=== PATIENT | female | born 1970 | race African-American/Black ===

== ENCOUNTER 2017-04-16 12:11 | Inpatient (IN) | payer OTHER ==
[2017-04-16 12:33] VITALS: BMI 23.3
[2017-04-16] MEDS ORDERED: NICOTINE POLACRILEX 2 MG GUM BC PRN (17:05)
[2017-04-16] MEDS ORDERED: MAGNESIUM CITRATE 300 ML BOTTLE PO PRN (17:05)
[2017-04-16] MEDS ORDERED: IBUPROFEN 400 MG TABLET (FP) PO PRN (17:05)
[2017-04-16] MEDS ORDERED: MENTHOL/PHENOL 1 EACH UD MM PRN (17:05)
[2017-04-16] MEDS ORDERED: chlordiazePOXIDE HCL 25 MG CAPSULE PO PRN (17:05)
[2017-04-16] MEDS ORDERED: guaiFENesin/D-METHORPHAN HB 10 ML UNIT-DOSE CUPS PO PRN (17:05)
[2017-04-16] MEDS ORDERED: P-EPHED 60MG/TRIPROLIDI 2.5MG TABLET PO PRN (17:05)
[2017-04-16] MEDS ORDERED: MAGNESIUM HYDROX 2400MG/30ML ORAL SUSPENSION 30 ML CUP PO PRN (17:05)
[2017-04-16] MEDS ORDERED: LOPERAMIDE HCL 2 MG CAPSULE PO PRN (17:05)
--- NOTE | 2017-04-16 17:05 | HP ---
CIWA Score - CIWA Score Nausea/Vomitin-Int. Nausea w/Dry Heave Muscle Tremors: 4-Moderate,w/Arms Extend Anxiety: 3 Agitation: 3 Paroxysmal Sweats: 3 Orientation: 0-Oriented Tacttile Disturbances: 0-None Auditory Disturbances: 0-None Visual Disturbances: 0-None Headache: 3-Moderate CIWA-Ar Total Score: 20 Admission ROS BHS - HPI Chief Complaint: alcohol withdrawal syndrome/sx Allergies/Adverse Reactions: Allergies Allergy/AdvReac Type Severity Reaction Status Date / Time cashew nut Allergy Severe Verified 04/16/17 12:29 lisinopril Allergy Severe Verified 04/16/17 12:46 pistachio nut Allergy Severe Verified 04/16/17 12:29 History of Present Illness: 46 yo f with chronic alcohoism admitted for [facility] detox, first admission and treatment episode, was sober when she had her children. PMHX HIV+ on meds, [place] them on [address] prior to admission ,last filled 04/10/17. informed she needs to bring medication with her and we may not have them in stock but her priority is to attend detox. multiple medical comorbidities reported, taking medication as prescribed, did not take today. no si at this time. no h/o seizurs no DTs. Exam Limitations: No Limitations - Ebola screening Have you traveled outside of the country in the last 21 days: Yes Have you had contact with anyone from an Ebola affected area: No Have you been sick,other than usual withdrawal symptoms: No Do you have a fever: No - Review of Systems Constitutional: Chills, Diaphoresis, Malaise, Changes in sleep, Weakness, Unintentional Wgt. Loss Respiratory: reports: Cough, SOB with Exertion, Wheezing, Productive cough Cardiac: reports: No Symptoms Reported GI: reports: Nausea, Poor Appetite, Poor Fluid Intake, Rectal Bleeding, Vomiting , Abdominal cramping : reports: No Symptoms Reported Musculoskeletal: reports: Back Pain Integumentary: reports: Flushing, Sweating Neuro: reports: Headache, Tremors, Weakness, Unsteady Gait Endocrine: reports: No Symptoms Reported Hematology: reports: No Symptoms Reported Psychiatric: reports: Judgement Intact, Mood/Affect Appropiate, Orientated x3, Anxious, Depressed Other Systems: Reviewed and Negative Patient History - Patient Medical History Hx Anemia: No Hx Asthma: Yes (Pt is on MDI) Hx Chronic Obstructive Pulmonary Disease (COPD): No Hx Cancer: No Hx Cardiac Disorders: Yes (Pt states she has an cocaine NM at age 33 yrs old.) Hx Congestive Heart Failure: No Hx Hypertension: Yes (on meds.) Hx Hypercholesterolemia: No Hx Pacemaker: No HX Cerebrovascular Accident: Yes (mild stroke from alcohol last month, resolved) Hx Seizures: No Hx Dementia: No Hx Diabetes: No Hx Gastrointestinal Disorders: No Hx Genitourinary Disorders: No Hx Sexually Transmitted Disorders: No Hx Renal Disease (ESRD): No Hx Thyroid Disease: No Hx Human Immunodeficiency Virus (HIV): Yes Hx Hepatitis C: No Hx Depression: No Hx Suicide Attempt: Yes (Pt states she tried to cut her wrist at age 16 yrs.) Hx Bipolar Disorder: Yes Hx Schizophrenia: Yes - Patient Surgical History Past Surgical History: Yes Hx Section: Yes (x 2) Anesthesia Reaction: No - PPD History Previous Implant?: Yes Documented Results: Negative w/o proof Implanted On Prior [facility] Admission?: No PPD to be Administered?: Yes - Reproductive History Patient is a Female of Child Bearing Age (11 -55 yrs old): No Last Menstrual Period: 04/02/17 Patient : No - Smoking Cessation Smoking history: Current every day smoker Have you smoked in the past 12 months: Yes Aproximately how many cigarettes per day: 10 Hx Chewing Tobacco Use: No Initiated information on smoking cessation: Yes 'Breaking Loose' booklet given: 04/16/17 - Substance & Tx. History Hx Alcohol Use: Yes Hx Substance Use: No Substance Use Type: Cocaine Hx Substance Use Treatment: No (1st tretment episode) - Substances Abused Alcohol Route: Oral Frequency: Daily Amount used: 10 24 OZ BEERS/ 1 PINT RAY Age of first use: 7 Date of Last Use: 04/16/17 Crack Route: Smoking Frequency: Daily Amount used: $50 AND UP Age of first use: 16 Date of Last Use: 04/16/17 Family Disease History - Family Disease History Family Disease History: Other: Father (alcoholism), Mother (alcoholism), Brother (alcoholism), Sister (alcoholism), Son (alcoholism) Admission Physical Exam BHS - Vital Signs Vital Signs: Vital Signs - 24 hr 04/16/17 12:27 Temperature 98.4 F Pulse Rate 83 Respiratory 16 Rate Blood Pressure 130/87 - Physical General Appearance: Yes: Nourished, Appropriately Dressed, Disheveled, Mild Distress, Tremorous, Irritable, Sweating, Anxious HEENTM: Yes: Within Normal Limits, EOMI, Hearing grossly Normal, Normal ENT Inspection, Normocephalic, Normal Voice, ONESIMO, Pharynx Normal Respiratory: Yes: Within Normal Limits, Chest Non-Tender, Lungs Clear, Normal Breath Sounds, No Respiratory Distress, No Accessory Muscle Use Neck: Yes: Within Normal Limits, No masses,lesions,Nodules, Supple, Trachea in good position Breast: Yes: Breast Exam Deferred Cardiology: Yes: Within Normal Limits, Regular Rhythm, Regular Rate, S1, S2 Abdominal: Yes: Within Normal Limits, Normal Bowel Sounds, Non Tender, Flat, Soft Genitourinary: Yes: Within Normal Limits Back: Yes: Within Normal Limits, Normal Inspection Musculoskeletal: Yes: full range of Motion, Gait Steady, Pelvis Stable, Back pain Extremities: Yes: Normal Capillary Refill, Normal Range of Motion, Tremors Neurological: Yes: circulation worker II-XII NML intact, Fully Oriented, Alert, Motor Strength 5/5, Normal Response, Depressed Affect Integumentary: Yes: Normal Color, Warm, Diaphoresis, Moist Lymphatic: Yes: Within Normal Limits - Addiitonal Findings: withdrawal sx - Diagnostic (1) Alcohol dependence with uncomplicated withdrawal Current Visit: Yes Status: Acute (2) Cocaine dependence Current Visit: Yes Status: Acute (3) HIV (human immunodeficiency virus infection) Current Visit: Yes Status: Acute (4) Nicotine dependence Current Visit: Yes Status: Acute Cleared for Admission [facility] - Detox or Rehab [facility] Level of Care: Medically Managed Detox Regimen/Protocol: Librium [facility] Breath Alcohol Content Breath Alcohol Content: 0.046 Urine Pregancy Test - Result Urine Test Results: Negative- NO Line Present Urine Drug Screen - Results Drug Screen Negative: No Urine Drug Screen Results: ROSIBEL-Cocaine
[2017-04-16] MEDS: LOSARTAN POTASSIUM 50 MG TABLET (FP) PO SCH (18:00)
[2017-04-16] MEDS ORDERED: chlordiazePOXIDE HCL 25 MG CAPSULE PO ONE (18:00)
[2017-04-16] MEDS: PANTOPRAZOLE 40 MG TABLET (FP) PO SCH (18:00)
[2017-04-16] MEDS: ACETAMINOPHEN 325 MG TABLET (FP) PO PRN (18:04)
[2017-04-16] MEDS: NICOTINE 14 MG/24 HOURS TOPICAL PATCH TD SCH (18:04)
[2017-04-16] MEDS: hydrOXYzine PAMOATE 50 MG CAPSULE (FP) PO PRN (21:03)
[2017-04-16] MEDS ORDERED: THIAMINE HCL 100 MG TABLET (FP) PO SCH (22:00)
[2017-04-16] MEDS ORDERED: AZELASTINE HCL NS SCH (22:00)
[2017-04-16] MEDS: BUDESONIDE/FORMETEROL FUMARATE 160/4.5 mcg INHALER IH SCH (22:12)
[2017-04-16] MEDS: chlordiazePOXIDE HCL 25 MG CAPSULE PO SCH (22:13)
[2017-04-16] MEDS: MONTELUKAST NA 10 MG TABLET PO SCH (22:13)
[2017-04-16] MEDS: POLYETHYLENE GLYCOL 3350 119 GM BTL PO SCH (22:13)
[2017-04-16] MEDS: THIAMINE HCL 100 MG TABLET (FP) PO SCH (22:14)
[2017-04-16 22:54] LABS: URINE APPEARANCE CLEAR; URINE BILIRUBIN NEGATIVE (NEGATIVE); URINE BLOOD NEGATIVE (NEGATIVE); URINE COLOR LTYELLOW; URINE GLUCOSE (UA) NEGATIVE (NEGATIVE); URINE KETONE NEGATIVE (NEGATIVE); URINE NITRITE NEGATIVE (NEGATIVE); URINE PROTEIN NEGATIVE (NEGATIVE); URINE UROBILINOGEN NEGATIVE mg/dL (0.2-1.0)
[2017-04-17] MEDS: chlordiazePOXIDE HCL 25 MG CAPSULE PO SCH ×4 (05:38→22:05)
[2017-04-17 09:55] LABS: MCH 33.3 pg (25.7-33.7); MEAN CELL VOLUME 100.6 fl (80-96); MEAN PLT VOLUME 10.1 fl (7.5-11.1); PLATELET COUNT 115 K/MM3 (134-434); RDW 13.6 % (11.6-15.6); WHITE BLOOD COUNT 4.2 K/mm3 (4.0-10.0)
[2017-04-17 10:00] LABS: ALBUMIN 2.7 g/dl (3.4-5.0); ANION GAP 11 (8-16); BILIRUBIN,TOTAL 0.8 mg/dL (0.2-1.0); CALCIUM 7.9 mg/dL (8.5-10.1); CO2 20 mmol/L (21-32); CREATININE 0.7 mg/dL (0.55-1.02); GLUCOSE,RANDOM 93 mg/dL (74-106); SGOT/AST 65 U/L (15-37); SGPT/ALT 45 U/L (12-78); TOT PROT 7.7 g/dl (6.4-8.2)
[2017-04-17] MEDS ORDERED: DARUNAVIR ETHANOLATE 800 MG TAB PO SCH (10:00)
[2017-04-17] MEDS ORDERED: PATIENT'S OWN MEDICATION (NON-FORMULARY) (Elviteg/Cob/Emtri/Tenof Alafen 1 EACH) PO SCH (10:00)
[2017-04-17 10:01] LABS: ALK PHOS 107 U/L (45-117)
[2017-04-17] MEDS: BUDESONIDE/FORMETEROL FUMARATE 160/4.5 mcg INHALER IH SCH ×2 (10:25→22:04)
[2017-04-17] MEDS: NICOTINE 14 MG/24 HOURS TOPICAL PATCH TD SCH (10:26)
[2017-04-17] MEDS: LOSARTAN POTASSIUM 50 MG TABLET (FP) PO SCH (10:26)
[2017-04-17] MEDS: PANTOPRAZOLE 40 MG TABLET (FP) PO SCH (10:26)
[2017-04-17] MEDS: PRENATAL VITAMINS W/ FOLIC ACID TABLET (FP) PO SCH (10:26)
[2017-04-17] MEDS: ACETAMINOPHEN 325 MG TABLET (FP) PO PRN (10:28)
[2017-04-17] MEDS: MAG HYDROX/AL HYDROX/SIMETH 30 ML UNIT-DOSE CUP PO PRN (10:28)
[2017-04-17] MEDS: POLYETHYLENE GLYCOL 3350 119 GM BTL PO SCH (10:28)
--- NOTE | 2017-04-17 10:41 | PN ---
S CIWA - CIWA Score Nausea/Vomitin Muscle Tremors: 3 Anxiety: 3 Agitation: 2 Paroxysmal Sweats: 3 Orientation: 0-Oriented Tacttile Disturbances: 1-Very Mild Itch/Numbness Auditory Disturbances: 0-None Visual Disturbances: 0-None Headache: 0-None Present CIWA-Ar Total Score: 15 BHS Progress Note (SOAP) Subjective: interrupted sleep, sweats, shakes Objective: 04/17/17 10:39 Vital Signs Temperature 98.4 F 04/17/17 10:32 Pulse Rate 96 H 04/17/17 10:32 Respiratory Rate 18 04/17/17 10:32 Blood Pressure 109/78 04/17/17 10:32 O2 Sat by Pulse Oximetry (%) Laboratory Tests 04/16/17 04/17/17 04/17/17 22:00 06:00 06:00 WBC 4.2 RBC 4.01 Hgb 13.3 Hct 40.4 MCV 100.6 H MCH 33.3 MCHC 33.0 RDW 13.6 Plt Count 115 L MPV 10.1 Sodium 140 Potassium 3.8 Chloride 109 H Carbon Dioxide 20 L Anion Gap 11 BUN 11 Creatinine 0.7 Creat Clearance w eGFR > 60 Random Glucose 93 Calcium 7.9 L Total Bilirubin 0.8 AST 65 H ALT 45 Alkaline Phosphatase 107 Total Protein 7.7 Albumin 2.7 L Urine Color Ltyellow Urine Appearance Clear Urine pH 5.0 Ur Specific [place] 1.010 Urine Protein Negative Urine Glucose (UA) Negative Urine Ketones Negative Urine Blood Negative Urine Nitrite Negative Urine Bilirubin Negative Urine Urobilinogen Negative pt aox3 in nad ambulating Assessment: 04/17/17 10:40 withdrawal sx's Plan: cont. detox increase fluids
--- NOTE | 2017-04-17 17:20 | CONSULT ---
[facility] Psychiatric Consult - Data Date of interview: 04/17/17 Admission source: [facility] Identifying data: Readmission to [facility] for this 46 y/o AA female seeking detox treatment on for alcohol and cocaine dependence.Patient is single, a mother of eight,homeless,unemployed and supported on [employer] benefits. Substance Abuse History: Active use of alcohol and cocaine as per self- report.See [facility] report for details. Smoking Cessation. Smoking history: Current every day smoker. Have you smoked in the past 12 months: Yes. Aproximately how many cigarettes per day: 10. Hx Chewing Tobacco Use: No. Initiated information on smoking cessation: Yes. 'Breaking Loose' booklet given : 04/16/17. - Substance & Tx. History. Hx Alcohol Use: Yes. Hx Substance Use : No. Substance Use Type: Cocaine. Hx Substance Use Treatment: No (1st tretment episode). - Substances Abused. Alcohol. Route: Oral. Frequency: Daily. Amount used: 10 24 OZ BEERS/ 1 PINT RAY. Age of first use: 7. Date of Last Use: 04/16/17. Crack. Route: Smoking. Frequency: Daily. Amount used: $50 AND UP. Age of first use: 16. Date of Last Use: 04/16/17 Medical History: HIV infection,bronchial asthma,arthritis,hepatitis B,GERD,past history of mild CVA (no residual disability) and a remote antecedent of myocardial infarction. Psychiatric History: No reported history of psychiatric hospitalizations.Diagnosed with Schizophrenia,PTSD and MDD as per self- report.Patient is followed at the [facility] in [facility].Treated with abilify and paxil (doses not recalled).Last took these medications two days ago (questionable historian).Ms Vaughan denies history of suicide attempts. Physical/Sexual Abuse/Trauma History: Patient declines to discuss this domain. Additional Comment: Urine Drug Screen Results: ROSIBEL-Cocaine.Noted. Mental Status Exam - Mental Status Exam Alert and Oriented to: Time, Place, Person Cognitive Function: Grossly Intact Patient Appearance: Well Groomed Mood: Withdrawn, Hopeful Affect: Normal Range Patient Behavior: Fatigued, Appropriate, Cooperative Speech Pattern: Clear Voice Loudness: Normal Thought Process: Goal Oriented Thought Disorder: Not Present Hallucinations: Denies Suicidal Ideation: Denies Homicidal Ideation: Denies Insight/Judgement: Poor Sleep: Poorly, Difficulty falling asleep Appetite: Poor, Weight loss Muscle strength/Tone: Normal Gait/Station: Normal Psychiatric Findings - Problem List ([place] 1, 2,3) (1) Alcohol dependence with uncomplicated withdrawal Current Visit: Yes Status: Acute (2) Cocaine dependence Current Visit: Yes Status: Acute (3) Nicotine dependence Current Visit: Yes Status: Acute Qualifiers: Nicotine product type: cigarettes Substance use status: uncomplicated Qualified Code(s): F17.210 - Nicotine dependence, cigarettes, uncomplicated (4) Substance induced mood disorder Current Visit: Yes Status: Acute (5) Schizoaffective disorder Current Visit: Yes Status: Suspected (6) Insomnia Current Visit: Yes Status: Acute - Initial Treatment Plan Initial Treatment Plan: Psychoeducation.Detoxification.Sleep hygiene.Medications : abilify 10 mg po hs + ambien 10 mg po hs prn.Side effects/ benefits discussed with patient.Pharmacy claims reviewed : evidence of refills for topiramate 50 mg Tab # 60/30 days + abilify 20 mg/30 tab/30days + trazodone 150 mg/30 days + zolpidem 10 mg/30 days on 03/17/17 at [facility].In view of this patient's UNRELIABILITY,will resume only abilify at 10 mg/ hs.Patient will get back on her usual doses after discharge from [facility] and discussion with her [employer] care providers.NO scripts required at discharge.Observation.
[2017-04-17] MEDS ORDERED: ZOLPIDEM TARTRATE 10 MG TABLET (PARK CARE ONLY) PO PRN (17:37)
[2017-04-17 17:50] LABS: URINE LEUK ESTERASE Negative (NEGATIVE)
[2017-04-17] MEDS: THIAMINE HCL 100 MG TABLET (FP) PO SCH (22:05)
[2017-04-17] MEDS: ARIPiprazole 10 MG TABLET PO SCH (22:05)
[2017-04-17] MEDS: MONTELUKAST NA 10 MG TABLET PO SCH (22:05)
[2017-04-18] MEDS: chlordiazePOXIDE HCL 25 MG CAPSULE PO SCH ×3 (05:16→17:16)
[2017-04-18] MEDS: BUDESONIDE/FORMETEROL FUMARATE 160/4.5 mcg INHALER IH SCH ×2 (10:34→22:10)
[2017-04-18] MEDS: PANTOPRAZOLE 40 MG TABLET (FP) PO SCH (10:35)
[2017-04-18] MEDS: LOSARTAN POTASSIUM 50 MG TABLET (FP) PO SCH (10:35)
[2017-04-18] MEDS: PRENATAL VITAMINS W/ FOLIC ACID TABLET (FP) PO SCH (10:35)
[2017-04-18] MEDS: POLYETHYLENE GLYCOL 3350 119 GM BTL PO SCH (10:35)
[2017-04-18] MEDS: NICOTINE 14 MG/24 HOURS TOPICAL PATCH TD SCH (10:36)
[2017-04-18] MEDS: ACETAMINOPHEN 325 MG TABLET (FP) PO PRN (10:37)
--- NOTE | 2017-04-18 15:51 | PN ---
S CIWA - CIWA Score Nausea/Vomitin-No Nausea/No Vomiting Muscle Tremors: 3 Anxiety: 4-Mod. Anxious/Guarded Agitation: 3 Paroxysmal Sweats: 3 Orientation: 0-Oriented Tacttile Disturbances: 0-None Auditory Disturbances: 0-None Visual Disturbances: 0-None Headache: 0-None Present CIWA-Ar Total Score: 13 BHS Progress Note (SOAP) Subjective: Anxiety,tremors,sweating,interrupted sleep Objective: 04/18/17 15:49 Vital Signs - 8 hr 04/18/17 04/18/17 10:00 14:19 Temperature 99.7 F H 99.3 F Pulse Rate 106 H 116 H Respiratory 18 18 Rate Blood Pressure 140/97 112/69 Laboratory Tests 04/16/17 04/17/17 04/17/17 22:00 06:00 06:00 WBC 4.2 RBC 4.01 Hgb 13.3 Hct 40.4 MCV 100.6 H MCH 33.3 MCHC 33.0 RDW 13.6 Plt Count 115 L MPV 10.1 Sodium 140 Potassium 3.8 Chloride 109 H Carbon Dioxide 20 L Anion Gap 11 BUN 11 Creatinine 0.7 Creat Clearance w eGFR > 60 Random Glucose 93 Calcium 7.9 L Total Bilirubin 0.8 AST 65 H ALT 45 Alkaline Phosphatase 107 Total Protein 7.7 Albumin 2.7 L Urine Color Ltyellow Urine Appearance Clear Urine pH 5.0 Ur Specific [place] 1.010 Urine Protein Negative Urine Glucose (UA) Negative Urine Ketones Negative Urine Blood Negative Urine Nitrite Negative Urine Bilirubin Negative Urine Urobilinogen Negative Ur Leukocyte Esterase Negative RPR Titer 04/17/17 06:00 WBC RBC Hgb Hct MCV MCH MCHC RDW Plt Count MPV Sodium Potassium Chloride Carbon Dioxide Anion Gap BUN Creatinine Creat Clearance w eGFR Random Glucose Calcium Total Bilirubin AST ALT Alkaline Phosphatase Total Protein Albumin Urine Color Urine Appearance Urine pH Ur Specific [place] Urine Protein Urine Glucose (UA) Urine Ketones Urine Blood Urine Nitrite Urine Bilirubin Urine Urobilinogen Ur Leukocyte Esterase RPR Titer Nonreactive labs noted Assessment: 04/18/17 15:50 Withdrawal sx. Plan: Continue detox
[2017-04-18] MEDS: THIAMINE HCL 100 MG TABLET (FP) PO SCH (22:11)
[2017-04-18] MEDS: ARIPiprazole 10 MG TABLET PO SCH (22:11)
[2017-04-18] MEDS: MONTELUKAST NA 10 MG TABLET PO SCH (22:11)
[2017-04-18] MEDS: chlordiazePOXIDE 5 MG CAPSULE PO SCH (22:12)
[2017-04-18] MEDS: MAG HYDROX/AL HYDROX/SIMETH 30 ML UNIT-DOSE CUP PO PRN (22:30)
[2017-04-19] MEDS: chlordiazePOXIDE 5 MG CAPSULE PO SCH ×3 (05:46→17:06)
--- NOTE | 2017-04-19 10:09 | PN ---
BHS Progress Note (SOAP) Subjective: Sweating,interrupted sleep,restless Objective: 04/19/17 10:08 Vital Signs - 8 hr 04/19/17 04/19/17 04/19/17 03:30 06:00 09:41 Temperature 99.3 F 97.1 F L Pulse Rate 90 103 H Respiratory 18 16 16 Rate Blood Pressure 130/82 121/95 Laboratory Tests 04/16/17 04/17/17 04/17/17 22:00 06:00 06:00 WBC 4.2 RBC 4.01 Hgb 13.3 Hct 40.4 MCV 100.6 H MCH 33.3 MCHC 33.0 RDW 13.6 Plt Count 115 L MPV 10.1 Sodium 140 Potassium 3.8 Chloride 109 H Carbon Dioxide 20 L Anion Gap 11 BUN 11 Creatinine 0.7 Creat Clearance w eGFR > 60 Random Glucose 93 Calcium 7.9 L Total Bilirubin 0.8 AST 65 H ALT 45 Alkaline Phosphatase 107 Total Protein 7.7 Albumin 2.7 L Urine Color Ltyellow Urine Appearance Clear Urine pH 5.0 Ur Specific [place] 1.010 Urine Protein Negative Urine Glucose (UA) Negative Urine Ketones Negative Urine Blood Negative Urine Nitrite Negative Urine Bilirubin Negative Urine Urobilinogen Negative Ur Leukocyte Esterase Negative RPR Titer 04/17/17 06:00 WBC RBC Hgb Hct MCV MCH MCHC RDW Plt Count MPV Sodium Potassium Chloride Carbon Dioxide Anion Gap BUN Creatinine Creat Clearance w eGFR Random Glucose Calcium Total Bilirubin AST ALT Alkaline Phosphatase Total Protein Albumin Urine Color Urine Appearance Urine pH Ur Specific [place] Urine Protein Urine Glucose (UA) Urine Ketones Urine Blood Urine Nitrite Urine Bilirubin Urine Urobilinogen Ur Leukocyte Esterase RPR Titer Nonreactive labs noted Assessment: 04/19/17 10:09 Withdrawal sx. Plan: Continue detox
[2017-04-19] MEDS: PANTOPRAZOLE 40 MG TABLET (FP) PO SCH (10:42)
[2017-04-19] MEDS: BUDESONIDE/FORMETEROL FUMARATE 160/4.5 mcg INHALER IH SCH ×2 (10:42→23:05)
[2017-04-19] MEDS: LOSARTAN POTASSIUM 50 MG TABLET (FP) PO SCH (10:42)
[2017-04-19] MEDS: PRENATAL VITAMINS W/ FOLIC ACID TABLET (FP) PO SCH (10:42)
[2017-04-19] MEDS: POLYETHYLENE GLYCOL 3350 119 GM BTL PO SCH (10:43)
[2017-04-19] MEDS: NICOTINE 14 MG/24 HOURS TOPICAL PATCH TD SCH (10:43)
[2017-04-19] MEDS: THIAMINE HCL 100 MG TABLET (FP) PO SCH (23:05)
[2017-04-19] MEDS: MONTELUKAST NA 10 MG TABLET PO SCH (23:05)
[2017-04-19] MEDS: ARIPiprazole 10 MG TABLET PO SCH (23:05)
[2017-04-19] MEDS: chlordiazePOXIDE HCL 10 MG CAPSULE PO SCH (23:06)
[2017-04-20] MEDS: hydrOXYzine PAMOATE 50 MG CAPSULE (FP) PO PRN (04:13)
[2017-04-20] MEDS: chlordiazePOXIDE HCL 10 MG CAPSULE PO SCH (05:18)
[2017-04-20 06:22] VITALS: BP 112/80; PULSE 94; TEMP 98.2
--- NOTE | 2017-04-20 08:31 | DS ---
[facility] Detox Discharge Summary Admission Date: 04/16/17 Discharge Date: 04/20/17 - History Present History: Alcohol Dependence, Cocaine Dependence - Physical Exam Results Vital Signs: Vital Signs Temperature 98.2 F 04/20/17 06:21 Pulse Rate 94 H 04/20/17 06:21 Respiratory Rate 18 04/20/17 06:21 Blood Pressure 112/80 04/20/17 06:21 O2 Sat by Pulse Oximetry (%) - Treatment Hospital Course: Detox Protocol Followed, Detoxed Safely, Responded well, Discharged Condition Good, Rehab Referral Accepted - Medication Discharge Medications: Ambulatory Orders Azelastine HCl 2 sprays NS BID 04/16/17 Darunavir Ethanolate [Prezista -] 800 mg PO DAILY 04/16/17 Elviteg/Cob/Emtri/Tenof Alafen [Genvoya (Non-Formulary)] 1 each PO DAILY Ergocalciferol [Vitamin D2] 50,000 unit PO Q7D@1000 04/16/17 Losartan Potassium [Cozaar -] 50 mg PO DAILY 04/16/17 Montelukast Na [Singulair -] 10 mg PO HS 04/16/17 Multivit,Calc,Mins/Iron/Folic [Therapeutic-M Tablet] 1 each PO DAILY 04/16/17 Omeprazole 40 mg PO DAILY 04/16/17 Polyethylene Glycol 3350 [Purelax] 17 gm PO DAILY 04/16/17 Salmeterol/Fluticasone [Advair 500Mcg/50Mcg] 1 inh PO BID 04/16/17 Sennosides [Senna] 2 tab PO DAILY PRN 04/16/17 Thiamine HCl [Vitamin B-1] 100 mg PO BID 04/16/17 Trazodone HCl [Desyrel -] 150 mg PO HS 04/16/17 Aripiprazole [Abilify -] 10 mg PO HS #30 tablet 04/20/17 - AMA Did Patient Leave Against Medical Advice: No
--- NOTE | 2017-04-20 09:39 | EKG ---
Test Reason : Blood Pressure : / mmHG Vent. Rate : 079 BPM Atrial Rate : 079 BPM P-R Int : 116 ms QRS Dur : 088 ms QT Int : 388 ms P-R-T Axes : -01 050 078 degrees QTc Int : 444 ms NORMAL SINUS RHYTHM MINIMAL VOLTAGE CRITERIA FOR LVH, MAY BE NORMAL VARIANT NONSPECIFIC T WAVE ABNORMALITY ABNORMAL ECG NO PREVIOUS ECGS AVAILABLE Confirmed by DUSTY ABDI, JENNIFER ([id number]) on 04/20/2017 9:39:02 AM Referred By: Confirmed By:JENNIFER MONTANO MD
[2017-04-23] MEDS ORDERED: ERGOCALCIFEROL (VITAMIN D2) 50,000 UNIT CAPSULE (FP) PO SCH (10:00)
== END 2017-04-20 09:00 | disposition home or self-care (01) | DRG 774 ==
LOC: YASAS 12:11 → Y6N 15:31
PROVIDERS: ADMIT Internal Medicine; ATTEND Internal Medicine
PROC: HZ2ZZZZ Detoxification Services for Substance Abuse Treatment (ICD-10-PCS; principal; 2017-04-16)
DX: F10.230 Alcohol dependence with withdrawal, uncomplicated (principal); F14.20 Cocaine dependence, uncomplicated; F17.210 Nicotine dependence, cigarettes, uncomplicated; F19.24 Other psychoactive substance dependence with psychoactive substance-induced mood disorder; F25.9 Schizoaffective disorder, unspecified; F31.9 Bipolar disorder, unspecified; G47.00 Insomnia, unspecified; I25.2 Old myocardial infarction; I10 Essential (primary) hypertension; Z21 Asymptomatic human immunodeficiency virus [HIV] infection status; Z86.73 Personal history of transient ischemic attack (TIA), and cerebral infarction without residual deficits
CPT/HCPCS: 36415; 80053; 81003; 85027; 86593; 93005; 93010

== ENCOUNTER 2019-03-11 10:44 | Inpatient (IN) | payer OTHER ==
[2019-03-11 11:20] VITALS: BMI 27.7
--- NOTE | 2019-03-11 13:04 | HP ---
"CIWA Score Nausea/Vomitin-Mild Nausea/No Vomiting Muscle Tremors: 1-None Visible, but [place] Anxiety: 2 Agitation: 4-Moderately Restless Paroxysmal Sweats: 1-Minimal Palms Moist Orientation: 2-Disoriented Date<2 days Tacttile Disturbances: 0-None Auditory Disturbances: 2-Mild Harshness/Frighten Visual Disturbances: 2-Mild Sensitivity Headache: 4-Moderately Severe CIWA-Ar Total Score: 19 - Admission Criteria OASAS Guidelines: Admission for Medically Managed Detox: Requires at least one of the followin. CIWA greater than 12 2. Seizures within the past 24 hours 3. Delirium tremens within the past 24 hours 4. Hallucinations within the past 24 hours 5. Acute intervention needed for co occurring medical disorder 6. Acute intervention needed for co occurring psychiatric disorder 7. Severe withdrawal that cannot be handled at a lower level of care (continued vomiting, continued diarrhea, abnormal vital signs) requiring intravenous medication and/or fluids 8. Admitting History and Physical - Past Medical History ...LMP: 08/03/17 - Smoking History Smoking history: Current every day smoker Have you smoked in the past 12 months: Yes Aproximately how many cigarettes per day: 3 - Alcohol/Substance Use Hx Alcohol Use: Yes Admission ROS S - [facility] Allergies/Adverse Reactions: Allergies Allergy/AdvReac Type Severity Reaction Status Date / Time cashew nut Allergy Severe Verified 03/11/19 11:09 lisinopril Allergy Severe Verified 03/11/19 11:09 pistachio nut Allergy Severe Verified 03/11/19 11:09 History of Present Illness: 48 y.o. female pt here requesting detox from [facility] , reports 6 x 6-pk and 1 pint of liquor /day since > 1 yr ago , prior detox at this facility , relapsed after d/c , latest use was last night , current symptoms as above . Pt reports tremors if not drinking , denies seizures or blackouts , + falls while intoxication , latest @ 1: 30 am , fell and hit LEFT hand and left knee , did not seek medical attention , now c/o left hand swelling and pain since , BF wrapped left fingers II & III , reports mild pain and swelling in the left knee . Pt states she starts drinking around 9 am , does not stop until passing out at night . Longest sobriety 5 years while in program in [place] in 2003 . cocaine : 100 $ /DAY denies ivdu , first age of use 16 tobacco : 2-3 cigs/ day since age 14 . PMHX : htn , COPD , HIV dx 2003 ( RF = ST ) clinic @ [facility] , anxiety , depression , denies SA/ SI / HI PSHx : C-sx , 2 children , 1 d. age 5 [place] , 1 d 11 mo viral meningitis , 15 y.o. in foster care in [place] denies court issues SHx : lives alone unable to verify meds beyond ones reconciled, per pt also fills rx @ [facility] pharmacy [phone] , called , no answer per pt closed at this time. Meds to be verified in the a.m. Pt admits to non- compliance w/ BP meds at times , unsure of names and dosages of meds she is currently taken . This report was requested by: Tila Rowan | Reference #: [id number] Others' Prescriptions Patient Name: Uriel Vaughan Date: 1970 Address: [facility] [address] [place] [address] Sex: Female Rx Written Rx Dispensed Drug Quantity Days Supply Prescriber Name 01/18/2019 02/18/2019 zolpidem tartrate 10 mg tablet 30 30 Boyle , Clau 01/18/2019 01/23/2019 zolpidem tartrate 10 mg tablet 30 30 Boyle , Clau Patient Name: Uriel Vaughan Date: 1970 Address: [address] [place] [address] Sex: Female Rx Written Rx Dispensed Drug Quantity Days Supply Prescriber Name 12/28/2018 12/28/2018 zolpidem tartrate 10 mg tablet 30 30 Boyle , Clau 03/25/2018 03/25/2018 zolpidem tartrate 10 mg tablet 30 30 Boyle , Clau Patient Name: Uriel Vaughan Date: 1970 Address: [address], [place] [address] Sex: Female Rx Written Rx Dispensed Drug Quantity Days Supply Prescriber Name 11/25/2018 11/25/2018 zolpidem tartrate 10 mg tablet 30 30 BoyleClau cruz Patient Name: Uriel Vaughan Date: 1970 Address: [facility] [address] [place] [address] Sex: Female Rx Written Rx Dispensed Drug Quantity Days Supply Prescriber Name 08/17/2018 09/28/2018 zolpidem tartrate 10 mg tablet 28 28 Boyle , Clau 08/17/2018 08/30/2018 zolpidem tartrate 10 mg tablet 28 28 Boyle , Clau 08/17/2018 08/19/2018 zolpidem tartrate 10 mg tablet 14 14 Clau Boyle Patient Name: Uriel Vaughan Date: 1970 Address: [facility] [address] [place] [id number] Sex: Female Rx Written Rx Dispensed Drug Quantity Days Supply Prescriber Name 07/16/2018 07/20/2018 zolpidem tartrate 10 mg tablet 30 30 Boyle , Clau 04/19/2018 06/15/2018 zolpidem tartrate 10 mg tablet 30 30 Boyle , Clau 04/19/2018 05/18/2018 zolpidem tartrate 10 mg tablet 30 30 Boyle , Clau 04/19/2018 04/21/2018 zolpidem tartrate 10 mg tablet 30 30 Boyle Clau Exam Limitations: Clinical Condition - Ebola screening Have you traveled outside of the country in the last 21 days: No Have you had contact with anyone from an Ebola affected area: No Do you have a fever: No - Review of Systems Constitutional: No Symptoms Reported EENT: reports: Other (edentulous) Respiratory: reports: SOB with Exertion (h/o COPD) Cardiac: reports: No Symptoms Reported GI: reports: Nausea : reports: No Symptoms Reported Musculoskeletal: reports: Back Pain, Joint Pain (left knee pain and swelling), Other (left hand pain and swelling) Integumentary: reports: No Symptoms Reported Neuro: reports: Headache Endocrine: reports: No Symptoms Reported Psychiatric: reports: Agitated, Anxious Patient History - Patient Medical History Hx Anemia: No Hx Asthma: Yes (On Meds.) Hx Chronic Obstructive Pulmonary Disease (COPD): Yes (Uncertain about Type; On Meds.) Hx Cancer: No Hx Cardiac Disorders: No Hx Congestive Heart Failure: No Hx Hypertension: Yes (on meds.) Hx Hypercholesterolemia: No Hx Pacemaker: No HX Cerebrovascular Accident: Yes (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), resolved) Hx Seizures: No Hx Dementia: No Hx Diabetes: No Hx Gastrointestinal Disorders: Yes (Acid reflux.) Hx Liver Disease: Yes (Hep B.) Hx Genitourinary Disorders: No Hx Sexually Transmitted Disorders: No Hx Renal Disease (ESRD): No Hx Thyroid Disease: No Hx Human Immunodeficiency Virus (HIV): Yes (Diagnosed 2004, On meds.) Hx Hepatitis C: No (Last Tested: 05/2017: NEGATIVE.) Hx Depression: Yes (On meds.) Hx Suicide Attempt: No (PATIENT DENIES CURRENT SI / HI.) Hx Bipolar Disorder: Yes (On meds.) Hx Schizophrenia: No - Patient Surgical History Past Surgical History: Yes Hx Neurologic Surgery: No Hx Cataract Extraction: No Hx Cardiac Surgery: No Hx Lung Surgery: No Hx Breast Surgery: No Hx Breast Biopsy: No Hx Abdominal Surgery: No Hx Appendectomy: No Hx Cholecystectomy: No Hx Genitourinary Surgery: No Hx Section: Yes (x 2 (1998, 2003)) Hx Orthopedic Surgery: No Hx Hysterectomy: No Other Surgical History: DENIES. Anesthesia Reaction: No - PPD History Date: 04/18/17 Results: 1 MM - Reproductive History Last Menstrual Period: 08/03/17 - Smoking Cessation Smoking history: Current every day smoker Have you smoked in the past 12 months: Yes Aproximately how many cigarettes per day: 3 Cigars Per Day: 0 Hx Chewing Tobacco Use: No Initiated information on smoking cessation: No - Substances abused Alcohol Substance route: Oral Frequency: Daily Amount used: (3) 6pk beer & 1 pint of E&J Age of first use: 7 Date of last use: 03/11/19 Crack Substance route: Smoking Frequency: Daily Amount used: $100 Age of first use: 89 Date of last use: 03/11/19 Admission Physical Exam [facility] - Vital Signs Vital Signs: Vital Signs - 24 hr 03/11/19 03/11/19 11:09 11:43 Temperature 97.3 F L 97.3 F L Pulse Rate 76 76 Respiratory 18 18 Rate Blood Pressure 180/117 H 180/117 H - Physical General Appearance: Yes: Mild Distress, Irritable, Anxious HEENTM: Yes: EOMI, Hearing grossly Normal, Normocephalic, Normal Voice, Other ( edentulous upper , many missing teeth lower) Respiratory: Yes: Lungs Clear, Normal Breath Sounds, Decreased Breath Sounds, No Respiratory Distress, No Accessory Muscle Use Neck: Yes: No masses,lesions,Nodules, Trachea in good position Cardiology: Yes: Regular Rhythm, Regular Rate, S1, S2 Abdominal: Yes: Non Tender, Soft Back: Yes: Muscle Spasm (tender PVM lumbar paraspinal) Musculoskeletal: Yes: Gait Steady, Joint swelling (left knee , + crepitus , mild edema, good AROM) Extremities: Yes: Non-Tender, Swelling (left hand dorsum 2nd and 3rd MC , tender to palpation , moderate edema , decreased ROM left wrist , decreased adjuster piano action strength left hand.) Neurological: Yes: Fully Oriented, Alert, Motor Strength 5/5, Depressed Affect Integumentary: Yes: Warm - Addiitonal Findings: sent to [facility] ed for left hand xr . report to Dr Curran pt returned form the hospital , no frx , dx w/ sprain and has erin bandage - Diagnostic (1) Alcohol dependence with uncomplicated withdrawal Current Visit: Yes Status: Chronic (2) Cocaine dependence Current Visit: Yes Status: Chronic Qualifiers: Substance use status: uncomplicated Qualified Code(s): F14.20 - Cocaine dependence, uncomplicated (3) Nicotine dependence Current Visit: Yes Status: Chronic Qualifiers: Nicotine product type: cigarettes Breathalyzer - Breathalyzer Breathalyzer: 0 Urine Drug Screen - Test Device Lot number: [id number] Expiration date: 10/29/20 - Control Is test valid?: Yes - Results Drug screen NEGATIVE: No Urine drug screen results: ROSIBEL-Cocaine Inpatient Rehab Admission - Rehab Decision to Admit Inpatient rehab admission?: No"
[2019-03-11] MEDS ORDERED: IBUPROFEN 400 MG TABLET (FP) PO PRN (16:57)
[2019-03-11] MEDS ORDERED: METHOCARBAMOL 500 MG TABLET PO PRN (16:57)
[2019-03-11] MEDS ORDERED: MELATONIN 5 MG TABLETS PO PRN (16:57)
[2019-03-11] MEDS ORDERED: ACETAMINOPHEN 325 MG TABLET (FP) PO PRN ×2 (16:57)
[2019-03-11] MEDS ORDERED: MAG HYDROX/AL HYDROX/SIMETH 30 ML UNIT-DOSE CUP PO PRN (16:57)
[2019-03-11] MEDS ORDERED: MAGNESIUM CITRATE 300 ML BOTTLE PO PRN (16:57)
[2019-03-11] MEDS ORDERED: MENTHOL/PHENOL 1 EACH UD MM PRN (16:57)
[2019-03-11] MEDS ORDERED: MAGNESIUM HYDROX 2400MG/30ML ORAL SUSPENSION 30 ML CUP PO PRN (16:57)
[2019-03-11] MEDS ORDERED: BISMUTH SUBSALICYLATE 524 MG/30 ML UD PO PRN (16:57)
[2019-03-11] MEDS ORDERED: hydrOXYzine PAMOATE 25 MG CAPSULE (FP) PO PRN (16:57)
[2019-03-11] MEDS ORDERED: ALBUTEROL SO4 0.083% IH SOL 2.5 MG/3 ML VIAL.NEB. NEB PRN (16:58)
[2019-03-11] MEDS ORDERED: TOPIRAMATE 25 MG TABLET (FP) PO PRN (16:59)
[2019-03-11] MEDS ORDERED: chlordiazePOXIDE HCL 25 MG CAPSULE PO PRN (17:01)
[2019-03-11] MEDS ORDERED: ALBUTEROL SO4 8 GM HFA INHALER IH PRN (17:25)
[2019-03-11] MEDS: LOSARTAN POTASSIUM 50 MG TABLET (FP) PO SCH (19:55)
[2019-03-11] MEDS: amLODIPine BESYLATE 10 MG TABLET (FP) PO SCH (19:55)
[2019-03-11] MEDS: chlordiazePOXIDE HCL 25 MG CAPSULE PO SCH ×2 (19:56→22:20)
[2019-03-11] MEDS: THIAMINE HCL 100 MG TABLET (FP) PO SCH (22:20)
[2019-03-11] MEDS: DARUNAVIR ETHANOLATE 800 MG TAB PO SCH (23:14)
[2019-03-12] MEDS: chlordiazePOXIDE HCL 25 MG CAPSULE PO SCH ×4 (06:09→22:21)
[2019-03-12 10:08] LABS: HEMATOCRIT 42.1 % (32.4-45.2); HEMOGLOBIN 14.1 GM/dL (10.7-15.3); MCH 33.5 pg (25.7-33.7); MCHC 33.5 g/dl (32.0-36.0); MEAN CELL VOLUME 100.2 fl (80-96); MEAN PLT VOLUME 9.6 fl (7.5-11.1); PLATELET COUNT 102 K/MM3 (134-434); RDW 13.2 % (11.6-15.6); WHITE BLOOD COUNT 2.6 K/mm3 (4.0-10.0)
[2019-03-12 10:12] LABS: ALBUMIN 2.9 g/dl (3.4-5.0); BILIRUBIN,TOTAL 0.5 mg/dL (0.2-1); BLOOD UREA NITROGEN 10.4 mg/dL (7-18); CALCIUM 8.4 mg/dL (8.5-10.1); CREATININE 0.7 mg/dL (0.55-1.3); TOT PROT 7.5 g/dl (6.4-8.2)
[2019-03-12] MEDS: amLODIPine BESYLATE 10 MG TABLET (FP) PO SCH (10:45)
[2019-03-12] MEDS: PRENATAL VITAMINS W/ FOLIC ACID TABLET (FP) PO SCH (10:45)
[2019-03-12] MEDS: LOSARTAN POTASSIUM 50 MG TABLET (FP) PO SCH (10:45)
[2019-03-12] MEDS: DARUNAVIR ETHANOLATE 800 MG TAB PO SCH (11:39)
[2019-03-12] MEDS: ELVITEG/COB/EMTRI/TENOF (GENVOYA) TABLET (NF) PO SCH (11:39)
--- NOTE | 2019-03-12 11:53 | CONSULT ---
[facility] Psychiatric Consult - Data Date of interview: 03/12/19 Admission source: [facility] Identifying data: [facility] for this 48 y/ o AA female self-referred for detoxification (RIK issues : alcohol, nicotine, cocaine). Interviewed at [address] [place] [address]. Patient introduces self as , a mother of eight, domiciled, unemployed and supported on [employer] benefits. Substance Abuse History: Discussed in this session. Details in current [facility] report as follows : Smoking history: Current every day smoker. Have you smoked in the past 12 months: Yes. Aproximately how many cigarettes per day: 3. Cigars Per Day: 0. Hx Chewing Tobacco Use: No. Initiated information on smoking cessation: No. - Substances abused. Alcohol. Substance route: Oral. Frequency: Daily. Amount used: (3) 6pk beer & 1 pint of E&J. Age of first use: 7. Date of last use: 03/11/19. Crack. Substance route: Smoking. Frequency: Daily. Amount used: $100. Age of first use: 89. Date of last use: 03/11/19 Medical History: Medical profile is remarkable for COPD, HIV infection, bronchial asthma, arthritis, hepatitis B, GERD, past history of mild CVA (no residual disability), distant antecedent of myocardial infarction, pain (left knee and left hand) from a recent fall prior to this [facility] visit and a history of two sections. Psychiatric History: Patient denies history of psychiatric hospitalizations. She endorses the diagnoses of Anxiety Disorder, PTSD and MDD. Ms Vaughan reports non-adherence to psychotropic medications. Has " no idea " about psychiatric OPD care. Records indicate that the patient has been treated, in the past, with various drugs (paroxetine, aripriprazole) at the [facility] in [facility]. Patient denies history of suicide attempts. Physical/Sexual Abuse/Trauma History: Patient declines to discuss this domain. Additional Comment: Urine drug screen results: ROSIBEL-Cocaine. Noted. Mental Status Exam - Mental Status Exam Alert and Oriented to: Time, Place, Person Cognitive Function: Grossly Intact Patient Appearance: Unkempt, Disheveled Mood: Withdrawn Affect: Mood Congruent, Constricted Patient Behavior: Sedated (mildly sedated), Fatigued Speech Pattern: Delayed, Slurred Voice Loudness: Mildly Soft/Quiet Thought Process: Goal Oriented Thought Disorder: Not Present Hallucinations: Denies Suicidal Ideation: Denies Homicidal Ideation: Denies Insight/Judgement: Poor Sleep: Well Appetite: Fair Gait/Station: Other (not observed; supine for entire interview) Psychiatric Findings - Problem List ([place] 1, 2,3) (1) Alcohol dependence with uncomplicated withdrawal Current Visit: Yes Status: Acute (2) Cocaine dependence Current Visit: Yes Status: Chronic Qualifiers: Substance use status: uncomplicated Qualified Code(s): F14.20 - Cocaine dependence, uncomplicated (3) Nicotine dependence Current Visit: Yes Status: Chronic Qualifiers: Nicotine product type: cigarettes (4) Substance induced mood disorder Current Visit: Yes Status: Chronic (5) History of depression Current Visit: Yes Status: Chronic (6) History of schizoaffective disorder Current Visit: Yes Status: Chronic (7) Non-compliance Current Visit: Yes Status: Chronic - Initial Treatment Plan Initial Treatment Plan: Records ([facility]) revisited. Medical consult (03/11/19) at [facility] has addressed issue of swelling/pain (left hand + left knee). See note. H+P appreciated. Contact made with pharmacist at [facility] ) : only refills for medical formulations, including topiramate on file. Psychoeducation. Sleep hygiene. Detoxification. AA meetings. Observation.
--- NOTE | 2019-03-12 12:58 | PN ---
S CIWA - CIWA Score Nausea/Vomitin-No Nausea/No Vomiting Muscle Tremors: 2 Anxiety: 3 Agitation: 0-Normal Activity Paroxysmal Sweats: 3 Orientation: 0-Oriented Tacttile Disturbances: 0-None Auditory Disturbances: 0-None Visual Disturbances: 0-None Headache: 2-Mild CIWA-Ar Total Score: 10 [facility] Progress Note (SOAP) Subjective: c/o anxiety, sweats, and headache. Objective: 03/12/19 12:54 Vital Signs 03/12/19 03/12/19 07:03 09:38 Temperature 96.6 F L 97.7 F Pulse Rate 78 73 Respiratory 18 18 Rate Blood Pressure 142/95 150/97 Lab Results WBC 2.6 K/mm3 (4.0-10.0) L 03/12/19 08:00 RBC 4.20 M/mm3 (3.60-5.2) 03/12/19 08:00 Hgb 14.1 GM/dL (10.7-15.3) 03/12/19 08:00 Hct 42.1 % (32.4-45.2) D 03/12/19 08:00 MCV 100.2 fl (80-96) H 03/12/19 08:00 MCHC 33.5 g/dl (32.0-36.0) 03/12/19 08:00 RDW 13.2 % (11.6-15.6) 03/12/19 08:00 Plt Count 102 K/MM3 (134-434) L 03/12/19 08:00 Sodium 143 mmol/L (136-145) 03/12/19 08:00 Potassium 4.0 mmol/L (3.5-5.1) 03/12/19 08:00 Chloride 113 mmol/L (98-107) H 03/12/19 08:00 Carbon Dioxide 25 mmol/L (21-32) 03/12/19 08:00 Anion Gap 5 MMOL/L (8-16) L 03/12/19 08:00 BUN 10.4 mg/dL (7-18) 03/12/19 08:00 Creatinine 0.7 mg/dL (0.55-1.3) 03/12/19 08:00 Random Glucose 80 mg/dL (74-106) 03/12/19 08:00 Calcium 8.4 mg/dL (8.5-10.1) L 03/12/19 08:00 Labs noted with low wbc possibly due to h/o HIV+. Assessment: 03/12/19 12:58 AOX3, in no acute respiratory distress. Full ROM, ambulating in the unit. Leukopenia Withdrawal symptoms. Plan: continue detox. Increase fluids. Repeat cbc.
[2019-03-12] MEDS: THIAMINE HCL 100 MG TABLET (FP) PO SCH (22:21)
[2019-03-13] MEDS: chlordiazePOXIDE HCL 25 MG CAPSULE PO SCH ×4 (06:23→22:22)
[2019-03-13] MEDS: ELVITEG/COB/EMTRI/TENOF (GENVOYA) TABLET (NF) PO SCH (08:30)
[2019-03-13] MEDS: amLODIPine BESYLATE 10 MG TABLET (FP) PO SCH (10:23)
[2019-03-13] MEDS: PRENATAL VITAMINS W/ FOLIC ACID TABLET (FP) PO SCH (10:23)
[2019-03-13] MEDS: DARUNAVIR ETHANOLATE 800 MG TAB PO SCH (10:23)
[2019-03-13] MEDS: LOSARTAN POTASSIUM 50 MG TABLET (FP) PO SCH (10:23)
[2019-03-13 10:24] LABS: BASO % 1.4 % (0-2.0); EOS % 2.5 % (0-4.5); HEMATOCRIT 42.8 % (32.4-45.2); HEMOGLOBIN 14.3 GM/dL (10.7-15.3); LYMPH % 37.9 % (8-40); MCH 33.5 pg (25.7-33.7); MCHC 33.3 g/dl (32.0-36.0); MEAN CELL VOLUME 100.6 fl (80-96); MEAN PLT VOLUME 9.6 fl (7.5-11.1); MONO % 9.1 % (3.8-10.2); NEUT % 49.1 % (42.8-82.8); PLATELET COUNT 118 K/MM3 (134-434); RBC 4.25 M/mm3 (3.60-5.2)
--- NOTE | 2019-03-13 11:40 | PN ---
S CIWA - CIWA Score Nausea/Vomitin-No Nausea/No Vomiting Muscle Tremors: None Anxiety: 3 Agitation: 0-Normal Activity Paroxysmal Sweats: 3 Orientation: 0-Oriented Tacttile Disturbances: 0-None Auditory Disturbances: 0-None Visual Disturbances: 0-None Headache: 2-Mild CIWA-Ar Total Score: 8 [facility] Progress Note (SOAP) Subjective: c/o headache, anxiety, and sweats. Objective: 03/13/19 11:38 Vital Signs 03/13/19 03/13/19 06:39 09:52 Temperature 98.1 F 97.0 F L Pulse Rate 86 83 Respiratory 16 16 Rate Blood Pressure 111/76 108/75 Lab Results WBC 3.0 K/mm3 (4.0-10.0) L 03/13/19 07:15 RBC 4.25 M/mm3 (3.60-5.2) 03/13/19 07:15 Hgb 14.3 GM/dL (10.7-15.3) 03/13/19 07:15 Hct 42.8 % (32.4-45.2) 03/13/19 07:15 MCV 100.6 fl (80-96) H 03/13/19 07:15 MCHC 33.3 g/dl (32.0-36.0) 03/13/19 07:15 RDW 13.0 % (11.6-15.6) 03/13/19 07:15 Plt Count 118 K/MM3 (134-434) L 03/13/19 07:15 Sodium 143 mmol/L (136-145) 03/12/19 08:00 Potassium 4.0 mmol/L (3.5-5.1) 03/12/19 08:00 Chloride 113 mmol/L (98-107) H 03/12/19 08:00 Carbon Dioxide 25 mmol/L (21-32) 03/12/19 08:00 Anion Gap 5 MMOL/L (8-16) L 03/12/19 08:00 BUN 10.4 mg/dL (7-18) 03/12/19 08:00 Creatinine 0.7 mg/dL (0.55-1.3) 03/12/19 08:00 Random Glucose 80 mg/dL (74-106) 03/12/19 08:00 Calcium 8.4 mg/dL (8.5-10.1) L 03/12/19 08:00 Labs noted. Assessment: 03/13/19 11:39 AOX3, in no respiratory distress. Full ROM, ambulating in the unit. Withdrawal symptoms. Plan: continue detox.
[2019-03-13] MEDS: THIAMINE HCL 100 MG TABLET (FP) PO SCH (22:22)
[2019-03-14] MEDS ORDERED: chlordiazePOXIDE HCL 10 MG CAPSULE PO PRN
[2019-03-14] MEDS: chlordiazePOXIDE HCL 10 MG CAPSULE PO SCH ×4 (06:13→22:43)
[2019-03-14] MEDS: LOSARTAN POTASSIUM 50 MG TABLET (FP) PO SCH (10:31)
[2019-03-14] MEDS: amLODIPine BESYLATE 10 MG TABLET (FP) PO SCH (10:31)
[2019-03-14] MEDS: DARUNAVIR ETHANOLATE 800 MG TAB PO SCH (10:31)
[2019-03-14] MEDS: ELVITEG/COB/EMTRI/TENOF (GENVOYA) TABLET (NF) PO SCH (10:31)
[2019-03-14] MEDS: PRENATAL VITAMINS W/ FOLIC ACID TABLET (FP) PO SCH (10:31)
--- NOTE | 2019-03-14 19:12 | PN ---
S CIWA - CIWA Score Nausea/Vomitin-No Nausea/No Vomiting Muscle Tremors: None Anxiety: 3 Agitation: 2 Paroxysmal Sweats: 3 Orientation: 0-Oriented Tacttile Disturbances: 1-Very Mild Itch/Numbness Auditory Disturbances: 0-None Visual Disturbances: 0-None Headache: 2-Mild CIWA-Ar Total Score: 11 BHS Progress Note (SOAP) Subjective: Anxious, Sweating, H/A. Objective: PATIENT A & O X 3, OBSERVED AMBULATING ON DETOX UNIT UNASSISTED. IN NO ACUTE DISTRESS. 03/14/19 19:09 Vital Signs Temperature 97.5 F L 03/14/19 17:13 Pulse Rate 91 H 03/14/19 17:13 Respiratory Rate 16 03/14/19 17:13 Blood Pressure 93/69 03/14/19 17:13 O2 Sat by Pulse Oximetry (%) Laboratory Tests 03/11/19 03/12/19 03/12/19 11:43 08:00 08:00 WBC 2.6 L RBC 4.20 Hgb 14.1 Hct 42.1 D MCV 100.2 H MCH 33.5 MCHC 33.5 RDW 13.2 Plt Count 102 L MPV 9.6 Absolute Neuts (auto) Neutrophils % Lymphocytes % Monocytes % Eosinophils % Basophils % Nucleated RBC % Sodium 143 Potassium 4.0 Chloride 113 H Carbon Dioxide 25 Anion Gap 5 L BUN 10.4 Creatinine 0.7 Est GFR (CKD-EPI)AfAm 118.74 Est GFR (CKD-EPI)NonAf 102.45 Random Glucose 80 Calcium 8.4 L Total Bilirubin 0.5 AST 89 H ALT 65 H Alkaline Phosphatase 111 Total Protein 7.5 Albumin 2.9 L POC Urine HCG, Qual Negative RPR Titer 03/12/19 03/13/19 08:00 07:15 WBC 3.0 L RBC 4.25 Hgb 14.3 Hct 42.8 MCV 100.6 H MCH 33.5 MCHC 33.3 RDW 13.0 Plt Count 118 L MPV 9.6 Absolute Neuts (auto) 1.5 Neutrophils % 49.1 Lymphocytes % 37.9 Monocytes % 9.1 Eosinophils % 2.5 Basophils % 1.4 Nucleated RBC % 0 Sodium Potassium Chloride Carbon Dioxide Anion Gap BUN Creatinine Est GFR (CKD-EPI)AfAm Est GFR (CKD-EPI)NonAf Random Glucose Calcium Total Bilirubin AST ALT Alkaline Phosphatase Total Protein Albumin POC Urine HCG, Qual RPR Titer Nonreactive LABS NOTED. RESULTS OF REPEAT CBC NOTED. MILD INCREASES NOTED IN BOTH WBC AND IN PLATELET LEVELS. 03/14/19 19:11 Assessment: 03/14/19 19:10 WITHDRAWAL SYMPTOMS. ELEVATED ALT LEVEL. ELEVATED AST LEVEL. LEUKOPENIA. THROMBOCYTOPENIA. Plan: CONTINUE DETOX.
[2019-03-14] MEDS: THIAMINE HCL 100 MG TABLET (FP) PO SCH (21:26)
[2019-03-15] MEDS ORDERED: chlordiazePOXIDE HCL 10 MG CAPSULE PO SCH (05:00)
[2019-03-15] MEDS: ELVITEG/COB/EMTRI/TENOF (GENVOYA) TABLET (NF) PO SCH (07:26)
[2019-03-15 09:26] VITALS: BP 120/83; PULSE 92; TEMP 97.8
[2019-03-15] MEDS: DARUNAVIR ETHANOLATE 800 MG TAB PO SCH (10:08)
[2019-03-15] MEDS: PRENATAL VITAMINS W/ FOLIC ACID TABLET (FP) PO SCH (10:08)
[2019-03-15] MEDS: LOSARTAN POTASSIUM 50 MG TABLET (FP) PO SCH (10:08)
[2019-03-15] MEDS: amLODIPine BESYLATE 10 MG TABLET (FP) PO SCH (10:08)
--- NOTE | 2019-03-15 15:45 | DS ---
[facility] Detox Discharge Summary Admission Date: 03/11/19 Discharge Date: 03/15/19 - History Present History: Alcohol Dependence, Cocaine Dependence Additional Comments: SINCE PATIENT REPORTS THAT CURRENT WITHDRAWAL / DETOX SYMPTOMS ARE MINIMAL IN DEGREE AND THAT SHE FEELS WELL OVERALL, AT PATIENTS REQUEST, SHE WAS GRANTED AN EARLY DISCHARGE FROM DETOX UNIT TODAY SO THAT HE MAY RETURN HOME AND TO WORK. PATIENT WILL CONSIDER REHAB ADMISSION FOR FUTURE. PATIENT ALSO ADVISED TO CONSIDER LOCAL 12-STEP / NA / AA OUTPATIENT SUPPORT GROUP PROGRAMS FOR AFTERCARE. PATIENT VERBALIZED UNDERSTANDING OF RECOMMENDATION. PATIENT WAS DISCHARGED FROM DETOX UNIT IN STABLE MEDICAL CONDITION. Pertinent Past History: Nicotine Dependence, HTN, C.O.P.D. H.I.V., Anxiety, Depression, Asthma, History Of CVA, Acid Reflux, Hep B, Bipolar Disorder, Schizoaffective Disorder. - Physical Exam Results Vital Signs: Vital Signs Temperature 97.8 F 03/15/19 09:25 Pulse Rate 92 H 03/15/19 09:25 Respiratory Rate 18 03/15/19 09:25 Blood Pressure 120/83 03/15/19 09:25 O2 Sat by Pulse Oximetry (%) Pertinent Admission Physical Exam Findings: WITHDRAWAL SYMPTOMS. Laboratory Tests 03/11/19 03/12/19 03/12/19 11:43 08:00 08:00 WBC 2.6 L RBC 4.20 Hgb 14.1 Hct 42.1 D MCV 100.2 H MCH 33.5 MCHC 33.5 RDW 13.2 Plt Count 102 L MPV 9.6 Absolute Neuts (auto) Neutrophils % Lymphocytes % Monocytes % Eosinophils % Basophils % Nucleated RBC % Sodium 143 Potassium 4.0 Chloride 113 H Carbon Dioxide 25 Anion Gap 5 L BUN 10.4 Creatinine 0.7 Est GFR (CKD-EPI)AfAm 118.74 Est GFR (CKD-EPI)NonAf 102.45 Random Glucose 80 Calcium 8.4 L Total Bilirubin 0.5 AST 89 H ALT 65 H Alkaline Phosphatase 111 Total Protein 7.5 Albumin 2.9 L POC Urine HCG, Qual Negative RPR Titer 03/12/19 03/13/19 08:00 07:15 WBC 3.0 L RBC 4.25 Hgb 14.3 Hct 42.8 MCV 100.6 H MCH 33.5 MCHC 33.3 RDW 13.0 Plt Count 118 L MPV 9.6 Absolute Neuts (auto) 1.5 Neutrophils % 49.1 Lymphocytes % 37.9 Monocytes % 9.1 Eosinophils % 2.5 Basophils % 1.4 Nucleated RBC % 0 Sodium Potassium Chloride Carbon Dioxide Anion Gap BUN Creatinine Est GFR (CKD-EPI)AfAm Est GFR (CKD-EPI)NonAf Random Glucose Calcium Total Bilirubin AST ALT Alkaline Phosphatase Total Protein Albumin POC Urine HCG, Qual RPR Titer Nonreactive LABS NOTED. - Treatment Hospital Course: Detox Protocol Followed, Detoxed Safely, Responded well, Discharged Condition Good Patient has Accepted a Rehab Referral to: PT ADVISED TO CONSIDER LOCAL 12-STEP / NA / AA OUTPATIENT SUPPORT GROUP. - Medication Discharge Medications: Ambulatory Orders Azelastine HCl 2 sprays NS BID 04/16/17 Darunavir Ethanolate [Prezista -] 800 mg PO DAILY 04/16/17 Elviteg/Cob/Emtri/Tenof Alafen [Genvoya (Non-Formulary)] 1 each PO DAILY Ergocalciferol [Vitamin D2] 50,000 unit PO Q7D@1000 04/16/17 Montelukast Na [Singulair -] 10 mg PO DAILY 04/16/17 Omeprazole 40 mg PO DAILY 04/16/17 Salmeterol/Fluticasone [Advair 500Mcg/50Mcg] 1 inh PO BID 04/16/17 Topiramate [Topamax] 25 mg PO DAILY 08/12/17 Aripiprazole [Abilify -] 10 mg PO DAILY #30 tablet 08/13/17 hydrOXYzine PAMOATE [Vistaril -] 100 mg PO HS #30 capsule 08/13/17 Sumatriptan Succinate [Imitrex] 25 mg PO DAILY PRN 03/11/19 Albuterol Sulfate Inhaler - [Ventolin Hfa Inhaler -] 2 inh PO Q4H PRN #1 inhaler 03/15/19 Amlodipine Besylate [Norvasc -] 10 mg PO DAILY 30 Days #30 tablet 03/15/19 Losartan Potassium [Cozaar -] 50 mg PO DAILY 30 Days #30 tablet 03/15/19 - Diagnosis (1) Alcohol dependence with uncomplicated withdrawal Current Visit: Yes Status: Acute (2) Cocaine dependence, uncomplicated Current Visit: Yes Status: Acute (3) Elevated alanine aminotransferase (ALT) level Current Visit: Yes Status: Acute (4) Elevated aspartate aminotransferase level Current Visit: Yes Status: Acute (5) History of depression Current Visit: Yes Status: Chronic (6) Nicotine dependence Current Visit: Yes Status: Chronic Qualifiers: Nicotine product type: cigarettes Substance use status: uncomplicated Qualified Code(s): F17.210 - Nicotine dependence, cigarettes, uncomplicated (7) Non-compliance Current Visit: Yes Status: Chronic (8) Substance induced mood disorder Current Visit: Yes Status: Chronic (9) Schizoaffective disorder Current Visit: Yes Status: Suspected Qualifiers: Schizoaffective disorder type: unspecified Qualified Code(s): F25.9 - Schizoaffective disorder, unspecified (10) Leukopenia Current Visit: Yes Status: Acute Qualifiers: Leukopenia type: unspecified Qualified Code(s): D72.819 - Decreased white blood cell count, unspecified (11) Thrombocytopenia Current Visit: Yes Status: Acute - AMA Did Patient Leave Against Medical Advice: No BHS CIWA - CIWA Score Nausea/Vomitin-No Nausea/No Vomiting Muscle Tremors: None Anxiety: 1-Mildly Anxious Agitation: 3 Paroxysmal Sweats: No Perspiration Orientation: 0-Oriented Tacttile Disturbances: 0-None Auditory Disturbances: 0-None Visual Disturbances: 0-None Headache: 0-None Present CIWA-Ar Total Score: 4
[2019-03-16] MEDS ORDERED: chlordiazePOXIDE HCL 10 MG CAPSULE PO ONE (05:00)
== END 2019-03-15 13:08 | disposition home or self-care (01) | DRG 774 ==
LOC: YASAS 10:44 → Y3N 17:59
PROVIDERS: ADMIT Allergy & Immunology; ATTEND Allergy & Immunology
PROC: HZ2ZZZZ Detoxification Services for Substance Abuse Treatment (ICD-10-PCS; principal; 2019-03-11)
DX: F10.230 Alcohol dependence with withdrawal, uncomplicated (principal); F14.20 Cocaine dependence, uncomplicated; F17.210 Nicotine dependence, cigarettes, uncomplicated; F19.24 Other psychoactive substance dependence with psychoactive substance-induced mood disorder; F25.9 Schizoaffective disorder, unspecified; F41.8 Other specified anxiety disorders; F31.9 Bipolar disorder, unspecified; Z21 Asymptomatic human immunodeficiency virus [HIV] infection status; I10 Essential (primary) hypertension; J44.9 Chronic obstructive pulmonary disease, unspecified; J45.998 Other asthma; K21.9 Gastro-esophageal reflux disease without esophagitis; B19.10 Unspecified viral hepatitis B without hepatic coma; D72.819 Decreased white blood cell count, unspecified; D69.6 Thrombocytopenia, unspecified; R94.5 Abnormal results of liver function studies; Z86.73 Personal history of transient ischemic attack (TIA), and cerebral infarction without residual deficits; Z91.19 Patient's noncompliance with other medical treatment and regimen; Z88.8 Allergy status to other drugs, medicaments and biological substances; Z91.018 Allergy to other foods; S63.8X2A Sprain of other part of left wrist and hand, initial encounter; X58.XXXA Exposure to other specified factors, initial encounter; Y93.9 Activity, unspecified; Y92.9 Unspecified place or not applicable; Y99.9 Unspecified external cause status
CPT/HCPCS: 36415; 80053; 81025; 85025; 85027; 86593

== ENCOUNTER 2019-03-11 14:46 | Emergency (ER) | payer OTHER ==
[2019-03-11 15:15] VITALS: BP 172/103; PULSE 82; TEMP 97.8; BMI 28.1
--- NOTE | 2019-03-11 15:15 | PDOC ---
Rapid Medical Evaluation Chief Complaint: Injury Time Seen by Provider: 03/11/19 15:11 Medical Evaluation: Allergies Allergy/AdvReac Type Severity Reaction Status Date / Time cashew nut Allergy Severe Verified 03/11/19 11:09 lisinopril Allergy Severe Verified 03/11/19 11:09 pistachio nut Allergy Severe Verified 03/11/19 11:09 03/11/19 15:12 Pt c/o: fell yesterday onto floor and now this am with swelling to left hand and fingers, pain with movement of 2nd and 3rd digits Pt on brief exam: noted edema over left 2nd and 3rd MCP joints Pt ordered for: hand xray Pt to proceed to the ED Discharge Disposition - Diagnosis Hand injury - Referrals - Patient Instructions - Post Discharge Activity
[2019-03-11] MEDS ORDERED: IBUPROFEN 400 MG TABLET (FP) PO ONE ×2 (15:33→15:38)
--- NOTE | 2019-03-11 15:38 | PDOC ---
History of Present Illness - General Chief Complaint: Injury Stated Complaint: SWOLLEN HAND Time Seen by Provider: 03/11/19 15:11 History Source: Patient Exam Limitations: Clinical Condition - History of Present Illness Initial Comments: 03/11/19 15:41 Patient with past medical history of alcohol abuse drug abuse and opiate dependent being admitted to [facility] for detox brought in by EMS for evaluation of left hand pain and swelling to left second and third fingers status post fall yesterday. Patient with left second and third finger reanna taped together which according to the patient was done by her boyfriend. Denies numbness or tingling sensation, hitting head or loss of consciousness. Denies any other symptoms Occurred: reports: yesterday Past History - Past Medical History Allergies/Adverse Reactions: Allergies Allergy/AdvReac Type Severity Reaction Status Date / Time cashew nut Allergy Severe Verified 03/11/19 11:09 lisinopril Allergy Severe Verified 03/11/19 11:09 pistachio nut Allergy Severe Verified 03/11/19 11:09 Home Medications: Ambulatory Orders Azelastine HCl 2 sprays NS BID 04/16/17 Darunavir Ethanolate [Prezista -] 800 mg PO DAILY 04/16/17 Elviteg/Cob/Emtri/Tenof Alafen [Genvoya (Non-Formulary)] 1 each PO DAILY Ergocalciferol [Vitamin D2] 50,000 unit PO Q7D@1000 04/16/17 Losartan Potassium [Cozaar -] 50 mg PO DAILY 04/16/17 Montelukast Na [Singulair -] 10 mg PO DAILY 04/16/17 Omeprazole 40 mg PO DAILY 04/16/17 Salmeterol/Fluticasone [Advair 500Mcg/50Mcg] 1 inh PO BID 04/16/17 Albuterol Sulfate Inhaler - [Ventolin Hfa Inhaler -] 2 inh PO Q4H PRN 08/12/17 Amlodipine Besylate [Norvasc -] 10 mg PO DAILY 08/12/17 Topiramate [Topamax] 25 mg PO DAILY 08/12/17 Zolpidem Tartrate [Ambien] 10 mg PO HS 08/12/17 Aripiprazole [Abilify -] 10 mg PO DAILY #30 tablet 08/13/17 hydrOXYzine PAMOATE [Vistaril -] 100 mg PO HS #30 capsule 08/13/17 Anemia: No Asthma: Yes (On Meds.) Cancer: No Cardiac Disorders: No CVA: Yes (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), resolved) COPD: Yes (Uncertain about Type; On Meds.) CHF: No Dementia: No Diabetes: No GI Disorders: Yes (Acid reflux.) Disorders: No HTN: Yes (on meds.) Hypercholesterolemia: No Kidney Stones: No Liver Disease: Yes (Hep B.) Seizures: No Thyroid Disease: No - Surgical History Abdominal Surgery: No Appendectomy: No Cardiac Surgery: No Cholecystectomy: No Lung Surgery: No Neurologic Surgery: No Orthopedic Surgery: No - Reproductive History PID: No - Immunization History Immunization Up to Date: Yes - Psycho Social/Smoking Cessation Hx Smoking History: Never smoked Have you smoked in the past 12 months: Yes Number of Cigarettes Smoked Daily: 3 Cigars Per Day: 0 'Breaking Loose' booklet given: 08/12/17 (GIVEN TO PATIENT.) Hx Alcohol Use: No Drug/Substance Use Hx: No Substance Use Type: Alcohol, Cocaine Hx Substance Use Treatment: Yes (1 Previous Detox admission at [facility] (04/2017).) Trauma Specific PMHX - Complaint Specific PMHX Arthritis: Yes (spine) Review of Systems - Review of Systems Able to Perform ROS?: Yes Is the patient limited [place] proficient: No Constitutional: No: Fever, Weakness HEENTM: No: Symptoms Reported Respiratory: No: Symptoms reported Cardiac (ROS): No: Symptoms Reported ABD/GI: No: Symptoms Reported Musculoskeletal: Yes: Symptoms Reported, See HPI, Joint Pain (left index and middle finger), Muscle Pain (left hand). No: Muscle Weakness Integumentary: No: Symptoms Reported Neurological: No: Symptoms reported, Numbness, Paresthesia, Tingling All Other Systems: Reviewed and Negative *Physical Exam - Vital Signs Last Vital Signs Temp Pulse Resp BP Pulse Ox 97.8 F 82 17 172/103 H 99 03/11/19 15:11 03/11/19 15:11 03/11/19 15:11 03/11/19 15:11 03/11/19 15:11 - Physical Exam Comments: 03/11/19 15:46 GENERAL: Well developed, well nourished. Awake and alert. No acute distress. PULMONARY: No evidence of respiratory distress. MUSCULOSKELETAL : Moderate tenderness over left index and middle finger and over distal aspect of left second and third metacarpals. Mild swelling to left index and middle finger. Full range of motion of left index and middle finger and wrist. SKIN: Warm and dry. Normal capillary refill. Mild swelling to left index and middle finger. NEUROLOGICAL: Alert, awake, appropriate. No motor deficits in the lower extremities. Gait is normal without ataxia. PSYCHIATRIC: Cooperative. Good eye contact. Appropriate mood and affect. General Appearance: Yes: Nourished, Appropriately Dressed. No: Apparent Distress HEENT: positive: Normal ENT Inspection Respiratory/Chest: negative: Respiratory Distress, Accessory Muscle Use Medical Decision Making - Medical Decision Making 03/11/19 15:43 Patient with past medical history of alcohol abuse drug abuse and opiate dependent being admitted to [facility] for detox brought in by EMS for evaluation of left hand pain and swelling to left second and third fingers status post fall yesterday. Patient with left second and third finger reanna taped together which according to the patient was done by her boyfriend. Denies numbness or tingling sensation, hitting head or loss of consciousness. Denies any other symptoms Exam significant for mild swelling to second and third phalange of left hand with moderate tenderness over second and third fingers and second and third metacarpals of left hand.. Full range of motion of left hand and fingers. X-ray of left hand shows no acute fracture or dislocation. Patient symptoms likely had a sprain. Ibuprofen 800 mg p.o. ordered for pain. Left hand wrapped with Van bandage. Patient stable for transfer back to detox center Discharge - Discharge Information Problems reviewed: Yes Clinical Impression/Diagnosis: Hand injury Qualifiers: Encounter type: initial encounter Laterality: left Qualified Code(s): S69.92XA - Unspecified injury of left wrist, hand and finger(s), initial encounter Sprain of left hand Qualifiers: Encounter type: initial encounter Qualified Code(s): S63.92XA - Sprain of unspecified part of left wrist and hand, initial encounter Condition: Stable Disposition: TRANSFER ACUTE CARE/OTHER HOSP - Admission No - Follow up/Referral - Patient Discharge Instructions Additional Instructions: X-ray of left hand shows no acute fracture or dislocation. Symptoms likely hand sprain from the fall. Take Motrin as needed for pain. Apply hot compress to hand 2-3 times a day as needed for pain and swelling. - Post Discharge Activity
== END 2019-03-11 16:33 | disposition short-term general hospital (02) ==
LOC: JERFT 14:46
DX: S63.8X2A Sprain of other part of left wrist and hand, initial encounter (principal); W19.XXXA Unspecified fall, initial encounter; Y93.89 Activity, other specified; Y92.89 Other specified places as the place of occurrence of the external cause; Y99.8 Other external cause status; I10 Essential (primary) hypertension; J44.9 Chronic obstructive pulmonary disease, unspecified; J45.998 Other asthma; B19.10 Unspecified viral hepatitis B without hepatic coma; K21.9 Gastro-esophageal reflux disease without esophagitis; F11.20 Opioid dependence, uncomplicated; F10.10 Alcohol abuse, uncomplicated; F14.10 Cocaine abuse, uncomplicated; F17.210 Nicotine dependence, cigarettes, uncomplicated; Z86.73 Personal history of transient ischemic attack (TIA), and cerebral infarction without residual deficits; Z88.8 Allergy status to other drugs, medicaments and biological substances; Z91.018 Allergy to other foods
CPT/HCPCS: 73130-TC-LT-FY; 99281-25